=== PATIENT | male | born 1970 | race American Indian/Alaskan Native ===

== ENCOUNTER 2018-12-01 14:34 | Emergency (ER) | payer OTHER ==
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
[2018-12-01] MEDS ORDERED: IBUPROFEN PO ONE (17:56)
[2018-12-01 20:04] VITALS: BP 138/75
== END 2018-12-01 20:04 | disposition home or self-care (01) ==
LOC: ED 14:34
DX: S46.912A Strain of unspecified muscle, fascia and tendon at shoulder and upper arm level, left arm, initial encounter (principal); M54.9 Dorsalgia, unspecified; V49.49XA Driver injured in collision with other motor vehicles in traffic accident, initial encounter; Y93.89 Activity, other specified; Y92.410 Unspecified street and highway as the place of occurrence of the external cause; Y99.8 Other external cause status